=== PATIENT | female | born 2000 | race Two or more races ===

== ENCOUNTER 2024-08-29 03:28 | Emergency (ER) | payer OTHER ==
[~2024-08-29] VITALS: Ht 157.5 cm; Wt 49.9 kg
[2024-08-29] MEDS ORDERED: KETOROLAC TROMETHAMINE 30 MG VIAL IV STA (04:22)
[2024-08-29] MEDS ORDERED: ACETAMINOPHEN 500 MG GEL..CAP PO STA (04:23)
[2024-08-29 05:19] LABS: BASO % 0.5 % (0.1-1.2); EOS % 0.9 % (0.7-7.0); HEMATOCRIT 41.4 % (34.1-44.9); HEMOGLOBIN 14.2 g/dL (11.2-15.7); LYMPH # 2.13 (1.18-3.74); LYMPH % 18.5 % (19.3-53.1); MEAN CORPUSCULAR HEMOGLOBIN 29.6 pg (25.6-32.2); MONO # 0.47 (0.24-0.82); MONO % 4.1 % (4.7-12.5); NEUT # 8.73 (1.56-6.13); NEUT % 75.7 % (34.0-71.1); PLATELET COUNT 340 K/uL (163-369); RED CELL DISTRIBUTION WIDTH 12.3 % (11.6-14.4)
[2024-08-29 05:44] LABS: INR 1.05; PARTIAL THROMBOPLASTIN TIME 21.6 SECONDS (22.0-34.0); PROTHROMBIN TIME 11.4 SECONDS (9.0-11.5)
[2024-08-29 05:46] LABS: CREATININE SERUM 0.54 mg/dL (0.55-1.02); GFR 139.9; POTASSIUM 3.46 mEq/L (3.5-5.1)
[2024-08-29] MEDS ORDERED: KETOROLAC TROMETHAMINE 15 MG VIAL IV ONE (13:30)
[2024-08-29] MEDS ORDERED: BUTALB/ACETAMINOPHEN/CAFFEINE 1 TAB TABLET PO ONE (13:30)
== END 2024-08-29 13:53 | disposition home or self-care (01) ==
LOC: ER 06:02
DX: S42.022A Displaced fracture of shaft of left clavicle, initial encounter for closed fracture (principal); S10.93XA Contusion of unspecified part of neck, initial encounter; S40.012A Contusion of left shoulder, initial encounter; V49.9XXA Car occupant (driver) (passenger) injured in unspecified traffic accident, initial encounter; Y93.89 Activity, other specified; Y92.413 State road as the place of occurrence of the external cause; Y99.9 Unspecified external cause status; G24.3 Spasmodic torticollis